=== PATIENT | male | born 1955 | race Caucasian/White ===

== ENCOUNTER 2022-01-08 13:09 | Day surgery (SDC) | payer BC ==
[2022-01-08] VITALS (10 sets, daily range): BP systolic 106–123; BP diastolic 46–78
[~2022-01-08] VITALS: Ht 182.9 cm; Wt 118.2 kg
[2022-01-08] MEDS ORDERED: DILT360C38 PO (13:31)
[2022-01-08] MEDS ORDERED: SPIR25TA5 PO (13:31)
[2022-01-08] MEDS ORDERED: LOSA100T57 PO (13:31)
[2022-01-08] MEDS ORDERED: ATOR10TA70 PO (13:31)
[2022-01-08] MEDS ORDERED: HYDR25TA4 PO (13:31)
[2022-01-08] MEDS ORDERED: APIX5TAB3 PO (13:31)
[2022-01-08] MEDS ORDERED: normal saline 1000ml 1,000 ML IV SCH (13:45)
[2022-01-08] MEDS ORDERED: MIDAZolam 1mg/ml 10ml vial IV ONE (13:45)
[2022-01-08] MEDS ORDERED: fentaNYL/PF 50MCG/1 ML 2ML syringe IV ONE (13:45)
[2022-01-08 14:10] LABS: BASOPHILS # (AUTO) 0.1 X10'3 (0-0.2); BASOPHILS % (AUTO) 1.4 % (0-1); EOSINOPHILS % (AUTO) 0.4 % (0-6); HEMOGLOBIN 14.9 g/dl (14.0-17.9); LYMPHOCYTES # (AUTO) 1.6 X10'3 (1.1-4.8); LYMPHOCYTES % (AUTO) 18.7 % (21-51); MEAN CORPUSCULAR HEMOGLOBIN 31.1 PG (27.0-31.0); MEAN CORPUSCULAR HGB CONC 33.1 g/dL (33.0-36.5); MEAN CORPUSCULAR VOLUME 93.9 FL (78-98); MEAN PLATELET VOLUME 7.6 FL (7.4-10.4); MONOCYTES # (AUTO) 0.5 X10'3 (0-0.9); MONOCYTES % (AUTO) 5.4 % (2-12); NEUTROPHILS # (AUTO) 6.2 X10'3 (1.8-7.7); NEUTROPHILS % (AUTO) 74.1 % (42-75); PLATELET COUNT 228 X10'3 (140-440); RED BLOOD COUNT 4.79 X10'6 (4.70-6.10); RED CELL DISTRIBUTION WIDTH 13.3 % (11.5-14.5); WHITE BLOOD COUNT 8.4 X10'3 (4.5-11.0)
[2022-01-08] MEDS ORDERED: FENTANYL CITRATE/PF 50 MCG/1 ML VIAL IV ONE (14:10)
[2022-01-08 14:12] LABS: ALBUMIN 4.2 G/DL (3.4-5.0); ANION GAP 13 (8-16); BLOOD UREA NITROGEN 19 MG/DL (7-18); CALCIUM 9.8 MG/DL (8.5-10.1); CHLORIDE 102 MMOL/L (99-107); CREATININE 1.12 MG/DL (0.60-1.10); GLUCOSE 132 MG/DL (70-104); POTASSIUM 3.6 MMOL/L (3.5-5.1); SODIUM 142 MMOL/L (135-145); TOTAL CARBON DIOXIDE 27.1 MMOL/L (24-32); eGFR 66 ML/MIN
== END 2022-01-08 16:05 | disposition home or self-care (01) ==
LOC: SSTAY O 13:09
PROVIDERS: ATTEND Student in an Organized Health Care Education/Training Program
DX: I48.91 Unspecified atrial fibrillation (principal); Z79.899 Other long term (current) drug therapy; E11.9 Type 2 diabetes mellitus without complications; G47.33 Obstructive sleep apnea (adult) (pediatric); I10 Essential (primary) hypertension; Z88.6 Allergy status to analgesic agent; Z98.890 Other specified postprocedural states
CPT/HCPCS: 36415; 80048; 82948; 85025; 85610; 92960; 93005; J2250; J3010; J7030; A4620

== ENCOUNTER 2022-04-09 10:41 | Day surgery (SDC) | payer BC ==
[2022-04-01 12:11] LABS: BASOPHILS % (AUTO) 0.4 % (0-1); EOSINOPHILS # (AUTO) 0.1 X10'3 (0-0.9); HEMATOCRIT 42.1 % (42.0-52.0); HEMOGLOBIN 14.1 g/dl (14.0-17.9); LYMPHOCYTES # (AUTO) 1.4 X10'3 (1.1-4.8); MEAN CORPUSCULAR HEMOGLOBIN 31.5 PG (27.0-31.0); MEAN CORPUSCULAR HGB CONC 33.5 g/dL (33.0-36.5); MEAN PLATELET VOLUME 7.9 FL (7.4-10.4); MONOCYTES # (AUTO) 0.6 X10'3 (0-0.9); MONOCYTES % (AUTO) 8.9 % (2-12); NEUTROPHILS # (AUTO) 5.1 X10'3 (1.8-7.7); NEUTROPHILS % (AUTO) 70.7 % (42-75); PLATELET COUNT 233 X10'3 (140-440); RED BLOOD COUNT 4.48 X10'6 (4.70-6.10); RED CELL DISTRIBUTION WIDTH 13.6 % (11.5-14.5); WHITE BLOOD COUNT 7.3 X10'3 (4.5-11.0)
[2022-04-01 12:16] LABS: ALBUMIN 3.7 G/DL (3.4-5.0); ANION GAP 10 (8-16); BLOOD UREA NITROGEN 23 MG/DL (7-18); BUN/CREATININE RATIO 18.7 (5.4-32.0); CALCIUM 9.5 MG/DL (8.5-10.1); CHLORIDE 104 MMOL/L (99-107); CREATININE 1.23 MG/DL (0.60-1.10); GLUCOSE 111 MG/DL (70-104); POTASSIUM 3.6 MMOL/L (3.5-5.1); SODIUM 142 MMOL/L (135-145); TOTAL CARBON DIOXIDE 28.3 MMOL/L (24-32); eGFR 59 ML/MIN
[2022-04-01 12:17] LABS: APTT 29 SECONDS (22-32)
[~2022-04-09] VITALS: Ht 182.9 cm; Wt 119.1 kg
[2022-04-09] VITALS (14 sets, daily range): BP systolic 117–157; BP diastolic 58–107
[~2022-04-09 10:41] MED LIST: APIX5TAB3 PO; ATOR10TA70 PO; DILT360C38 PO; HYDR25TA4 PO; LOSA100T57 PO; SPIR25TA5 PO
[2022-04-09] MEDS ORDERED: MIDAZolam 1mg/ml 10ml vial IV ONE (11:00)
[2022-04-09] MEDS ORDERED: SOTA80TA PO (11:00)
[2022-04-09] MEDS ORDERED: normal saline 1000ml 1,000 ML IV SCH (11:00)
[2022-04-09] MEDS ORDERED: fentaNYL/PF 50MCG/1 ML 2ML syringe IV ONE (11:00)
== END 2022-04-09 14:20 | disposition home or self-care (01) ==
LOC: SSTAY O 10:41
PROVIDERS: ATTEND Student in an Organized Health Care Education/Training Program
DX: I48.91 Unspecified atrial fibrillation (principal); G47.33 Obstructive sleep apnea (adult) (pediatric); E11.9 Type 2 diabetes mellitus without complications; I10 Essential (primary) hypertension; Z87.891 Personal history of nicotine dependence; Z88.5 Allergy status to narcotic agent; Z79.01 Long term (current) use of anticoagulants; Z79.899 Other long term (current) drug therapy
CPT/HCPCS: 36415; 80048; 85025; 85610; 85730; 92960; J2250; J3010; J7030; 93005; A4620